=== PATIENT | female | born 1965 | race Caucasian/White ===

== ENCOUNTER → 2019-12-13 11:49 | Outpatient (CLI) | payer BC, SELFPAY ==
[2019-12-13 12:39] LABS: Chloride 105 mmol/L (98-107)
[2019-12-13 12:40] LABS: Potassium 4.2 mmoL/L (3.5-5.1); Sodium 140 mmol/L (136-145)
[2019-12-13 12:42] LABS: Blood Urea Nitrogen 18 mg/dl (7-17); Estimated Glomerular Filt Rate 57 ml/min (>60); GFR (African American) 69 ML/MIN (>60)
[2019-12-13 12:43] LABS: Anion Gap 12.2 mEq/L (5-15); Calcium 9.9 mg/dl (8.4-10.2); Carbon Dioxide 27 mmol/L (22.0-30.0); Glucose 79 mg/dl (74-100)
== END ==
PROVIDERS: Visit Provider Internal Medicine Cardiovascular Disease
DX: I10 Essential (primary) hypertension (principal); E66.9 Obesity, unspecified; G47.33 Obstructive sleep apnea (adult) (pediatric); R06.83 Snoring; R40.0 Somnolence; R53.83 Other fatigue
CPT/HCPCS: 36415; 80048

== ENCOUNTER → 2020-06-05 10:21 | Outpatient (CLI) | payer BC, SELFPAY ==
--- NOTE | 2020-06-05 10:22 | CA_ITS ---
APPROVED REPORT EXAM: Comprehensive 2D, Doppler, and color-flow Echocardiogram Header Operator: Lauren Song RVT Ht: 5 ft 8 in Wt: 236lbs BSA: 2.19 BP: 127/74 mmHg Indications: MURMUR,A-FIB,HARVEY,OBESITY,HTN TDS-PT BODY HABITUS 2D Dimensions LVOT 1.89 cm (M/F) 1.5-2.5 LA Volume 31.10 mL LA Volume Index 14.20 mL/m2 (M/F) 16-34 M-Mode Dimensions RVDd 2.94 cm (0.9-2.6) LA Diam 3.81 cm (1.9-4.0) LVDd 5.59 cm (3.5-5.7) Ao Diam 2.42 cm (2.0-3.7) LVDs 3.62 cm (3.5-5.7) IVSd 0.89 cm (0.6-1.1) PWd 0.93 cm (0.6-1.1) EF (Teich) 63.90% FS 35.20% EDV (Teich) 153.00 mL ESV (Teich) 55.20 mL LV Diastology E Decel Time 213.00 (160-240 msec) E/A Ratio 0.9 MED E' 5.20 (< 7 cm/sec) E'/MED E' Ratio 15.85 (>14) LAT E' 5.70 (<10 cm/sec) E/LAT E' Ratio 14.46 (>14) Aortic Valve LVOT Max 123.00 (70-110 cm/s) LVOT VTI 39.63 cm AoV Peak Jonah. 321.00 (50-130 cm/s) AI PHT 1057.00 ms AO Peak GR. 41.30 mmHg AO Mean GR. 27.40 (<5 mmHg) AO VTI 85.64 (18-25 cm) PATRICIA (VTI) 1.30 (2.5-4.5 cm2) Mitral Valve MV E Max Jonah. 82.00 (40-130 cm/s) MV A Velocity 92.00 (40-130 cm/s) E/A Ratio 0.90 MV Decel. Time 213.00 (160-240 ms) MV PHT 62.00 ms Pulmonary Valve PV Peak Velocity 86.00 (50-150 cm/s) Left Ventricle Left atrium is mildly enlarged, left ventricle is normal size, mild concentric left ventricular hypertrophy, visually estimated ejection fraction 55% with no regional wall motion abnormality, grade 1 diastolic dysfunction seen with tissue Doppler evidence of raise left atrial pressure. Right Ventricle Right atrium and right ventricle are normal size and contractility. Aortic Valve Aortic valve is thickened and calcified, mean gradient across valve is 27 mmHg, valve area is 1.3 cm??? represents moderate aortic stenosis, there is mild aortic insufficiency. Mitral Valve Mitral valve leaflets are minimally thickened, there is mild mitral regurgitation. Tricuspid Valve Tricuspid valve is grossly normal, there is mild tricuspid regurgitation, tricuspid regurgitation jet velocity is inadequate for calculation of the right ventricular systolic pressure. Pulmonic Valve Pulmonic valve is poorly visualized. Great Vessels Aortic root is normal size. Pericardium No significant pericardial effusion noted. Conclusion 1. Mildly enlarged left atrium, normal left ventricular size, mild concentric left ventricular hypertrophy, visually estimated ejection fraction 55% with no regional wall motion abnormality, grade 1 diastolic dysfunction seen with tissue Doppler evidence of raise left atrial pressure. 2. Thickened and calcified aortic valve with valve area 1.3 cm??? represents moderate aortic stenosis. There is mild aortic insufficiency. 3. Mild mitral and tricuspid regurgitation. 4. No significant pericardial effusion noted. Electronically signed by : Omid Reddy, 06/05/2020 11:14:47
== END ==
PROVIDERS: PCP Family Medicine; Visit Provider Physician Assistant
DX: R42 Dizziness and giddiness; R06.00 Dyspnea, unspecified; R01.1 Cardiac murmur, unspecified; I48.91 Unspecified atrial fibrillation; R60.9 Edema, unspecified; G47.33 Obstructive sleep apnea (adult) (pediatric)
CPT/HCPCS: 93306; G0399

== ENCOUNTER → 2020-06-15 12:48 | Outpatient (CLI) | payer BC, SELFPAY ==
[2020-06-15 13:21] LABS: Chloride 108 mmol/L (98-107); Potassium 4.6 mmoL/L (3.5-5.1); Sodium 139 mmol/L (136-145)
[2020-06-15 13:24] LABS: Blood Urea Nitrogen 15 mg/dl (7-17); Estimated Glomerular Filt Rate 46 ml/min (>60); GFR (African American) 56 ML/MIN (>60)
[2020-06-15 13:25] LABS: Anion Gap 12.6 mEq/L (5-15); Calcium 10.5 mg/dl (8.4-10.2); Carbon Dioxide 23 mmol/L (22.0-30.0); Glucose 95 mg/dl (74-100)
[2020-06-15 13:49] LABS: Triiodothryronine (T3) Uptake 26 % (23.5-40.5)
[2020-06-15 13:50] LABS: Free Thyroxine Index 2.9 ug/dL (5.93-13.13); T4 (Thyroxine) 11.2 ug/dl (5.53-11.0)
[2020-06-15 14:04] LABS: Thyroid Stimulating Hormone 2.68 uIU/mL (0.465-4.68)
== END ==
PROVIDERS: Visit Provider Physician Assistant
DX: I10 Essential (primary) hypertension (principal); I48.91 Unspecified atrial fibrillation; Z79.899 Other long term (current) drug therapy
CPT/HCPCS: 36415; 80048; 84436; 84443; 84479